=== PATIENT | male | born 1970 | race Caucasian/White ===

== ENCOUNTER 2018-07-14 13:52 | Emergency (ER) | payer MEDICAID ==
[~2018-07-14] VITALS: Ht 188 cm; Wt 72.7 kg
[~2018-07-14 13:52] MED LIST: ATOM80CA PO; DIAZ5TAB PO; DIVA-81 PO; PRAZ2CAP2 PO; QUET50TA PO; VORT10TA PO
[2018-07-14 13:59] VITALS: BP 120/78
[2018-07-14] MEDS ORDERED: AMOX500C2 PO (14:12)
[2018-07-14] MEDS ORDERED: amoxicillin 250mg capsule PO ONE (14:15)
== END 2018-07-14 14:28 | disposition home or self-care (01) ==
LOC: ER 13:52
DX: K04.7 Periapical abscess without sinus (principal); K21.9 Gastro-esophageal reflux disease without esophagitis; Z56.0 Unemployment, unspecified
CPT/HCPCS: 99283

== ENCOUNTER 2020-01-01 20:52 | Emergency (ER) | payer OTHER, MEDICAID ==
[2020-01-01 21:07] VITALS: BP 138/88
[2020-01-01] MEDS ORDERED: acetaminophen 325mg tablet PO ONE (22:35)
[2020-01-01] MEDS ORDERED: ibuprofen tablet 400 MG TABLET PO ONE (22:35)
[2020-01-01] MEDS ORDERED: penicillin V potassium 500mg tablet PO ONE (22:35)
[2020-01-01] MEDS ORDERED: PENI500T2 PO (22:36)
== END 2020-01-01 22:48 | disposition home or self-care (01) ==
LOC: ER 20:52
DX: S16.1XXA Strain of muscle, fascia and tendon at neck level, initial encounter (principal); K08.89 Other specified disorders of teeth and supporting structures; M54.9 Dorsalgia, unspecified; K21.9 Gastro-esophageal reflux disease without esophagitis; F41.9 Anxiety disorder, unspecified; F32.9 Major depressive disorder, single episode, unspecified; F12.10 Cannabis abuse, uncomplicated; Z59.0 Homelessness; Z79.899 Other long term (current) drug therapy; V87.7XXA Person injured in collision between other specified motor vehicles (traffic), initial encounter; Y93.89 Activity, other specified; Y92.89 Other specified places as the place of occurrence of the external cause; Y99.8 Other external cause status
CPT/HCPCS: 99284

== ENCOUNTER 2020-01-09 14:16 | Emergency (ER) | payer MEDICAID, OTHER ==
[~2020-01-09] VITALS: Ht 188 cm; Wt 70.3 kg
[~2020-01-09 14:16] MED LIST changes: +PENI500T2 PO
[2020-01-09 14:58] VITALS: BP 127/92
[2020-01-09] MEDS ORDERED: proparacaine 0.5% ophthalmic drops 15ml LEFTEYE ONE (16:15)
[2020-01-09] MEDS ORDERED: ciprofloxacin 0.3% 2.5ml ophthalmic solution LEFTEYE ONE (16:15)
== END 2020-01-09 17:00 | disposition home or self-care (01) ==
LOC: ER 14:17
DX: H10.9 Unspecified conjunctivitis (principal); K21.9 Gastro-esophageal reflux disease without esophagitis; F41.9 Anxiety disorder, unspecified; F32.9 Major depressive disorder, single episode, unspecified; F12.90 Cannabis use, unspecified, uncomplicated; Z56.0 Unemployment, unspecified; Z72.89 Other problems related to lifestyle; Z79.899 Other long term (current) drug therapy
CPT/HCPCS: 99283